=== PATIENT | female | born 1945 | race Caucasian/White ===

== ENCOUNTER 2020-04-21 14:54 | Inpatient (IN) ==
[2020-04-21] MEDS ORDERED: ACETAMINOPHEN 325 MG TABLET PO PRN (16:32)
[2020-04-21] MEDS ORDERED: MORPHINE 4 MG/1 ML VIAL IV PRN (16:32)
[2020-04-21] MEDS ORDERED: ALBUTEROL 2.5 MG/3 ML NEB RESP TX PRN (16:32)
[2020-04-21] MEDS ORDERED: ONDANSETRON 4 MG/2 ML VIAL IV PRN (16:32)
[2020-04-21] MEDS ORDERED: DOBUTamine 0 MG/0 ML PREMIX IV ONE (16:34)
[2020-04-21] MEDS ORDERED: DOPamine 0 MG/0 ML PREMIX IV ONE (16:34)
[2020-04-21] MEDS ORDERED: PHENYLEPHRINE DRIP 40 MG/250 ML PREMIX IV PRN (16:36)
[2020-04-21] MEDS ORDERED: VASOPRESSIN 100 UNITS in SODIUM CHLORIDE 0.9% 95 ML IV PRN (16:41)
[2020-04-21] MEDS ORDERED: NOREPINEPHRINE 4 MG/4 ML VIAL IV ONE (16:44)
[2020-04-21] MEDS ORDERED: HEPARIN/NACL 0.9% 2 UNITS/ML 500 ML IV ONE (16:50)
[2020-04-21] MEDS ORDERED: NOREPINEPHRINE 8 MG in SODIUM CHLORIDE 0.9% 242 ML IV SCH (17:00)
[2020-04-21] MEDS ORDERED: PANTOPRAZOLE 40 MG VIAL IV SCH (17:00)
[2020-04-21] MEDS ORDERED: SODIUM CHLORIDE 0.9% 1,000 ML IV ONE (17:40)
[2020-04-21] MEDS ORDERED: SODIUM BICARBONATE 50 MEQ/50 ML VIAL IV ONE ×3 (17:44→18:03)
[2020-04-21 17:52] LABS: Basophils # 0.1 10*3/uL (0.0-0.2); Basophils % 0.6 % (0.0-0.8); Eosinophils # 0.1 10*3/uL (0.0-0.87); Eosinophils % 0.7 % (0.00-10.9); Hematocrit 27.7 VOL% (35.7-47.0); Hemoglobin 7.9 GM/DL (12.0-16.0); Immature Granulocytes % 7.1 %; Immature Granulocytes Absolute 1.29 #; Lymphocytes # 3.5 10*3/uL (1.4-4.0); Lymphocytes % 19.4 % (21.3-54.2); Mean Corpuscular HGB Conc 28.5 GM/DL (32-36); Mean Corpuscular Volume 108.2 FL (87-102); Mean Platelet Volume 9.1 FL (9.6-12.0); NRBC # 0.09 10*3/uL; Neutrophils % 64.2 % (38.7-73.9); Platelet Count 118 T/CUMM (130-400); Red Blood Count 2.56 MC/CUMM (3.8-5.5); Red Cell Distribution Width 13.2 % (9.3-17.3); White Blood Count 18.2 T/CUMM (4-12)
[2020-04-21] MEDS ORDERED: CALCIUM GLUCONATE 2,000 MG in SODIUM CHLORIDE 0.9% 100 ML IV ONE (18:00)
[2020-04-21 18:05] LABS: ABG Base Excess -22.9 MMOL/L (-2.5-2.5); ABG HCO3 7.4 MMOL/L (20-26); ABG Oxygen Saturation 99.6 % (95-100); ABG PCO2 24.3 MM HG (35-48); ABG TCO2 6.4 MMOL/L (23-27)
[2020-04-21 18:07] LABS: ABG PH 7.024 (7.35-7.45)
[2020-04-21] MEDS ORDERED: DEXTROSE 50% 25 GM/50 ML VIAL IV ONE ×2 (18:09→18:11)
[2020-04-21] MEDS ORDERED: SODIUM BICARB INJ 150 MEQ in DEXTROSE 5% 850 ML IV SCH (18:10)
[2020-04-21] MEDS ORDERED: EPINEPHrine 1 MG/ML VIAL ONE (18:22)
[2020-04-21] MEDS ORDERED: EPINEPHrine 1 MG/10 ML SYRINGE IV ONE (18:23)
[2020-04-21] MEDS ORDERED: CALCIUM CHLORIDE 1,000 MG/10 ML SYRINGE IV ONE (18:26)
[2020-04-21 18:43] LABS: Albumin 2.8 G/DL (3.4-5.0); Bilirubin,Total 0.4 MG/DL (0.2-1.0); Calcium 8.7 MG/DL (8.5-10.1); Osmolality,Calculated 290.8 MOS/KG (273-304); Total Protein 6.5 G/DL (6.4-8.3)
[2020-04-21 18:45] LABS: Barbiturates Screen,Urine Negative (Negative); Benzodiazepines Screen,Urine Negative (Negative); Cannabinoid Screen,Urine Negative (Negative); Opiate Screen,Urine Negative (Negative); Phencyclidine Screen,Urine Negative (Negative)
[2020-04-21] MEDS ORDERED: ALBUTEROL/IPRATROPIUM 3 ML NEB RESP TX SCH (19:00)
[2020-04-21 19:08] LABS: Acanthocytes 1+; Anisocytosis 2+; Eosinophils 1 % (0-10); Hypochromasia 1+; Lymphocytes 20 % (20-55); Metamyelocytes 3 %; Microcytosis 2+; Platelet Estimate Decreased; Segmented Neutrophils 74 % (50-85); Total Cells Counted 100
[2020-04-21 19:29] LABS: Apearance,Urine CLEAR (Clear); Bacteria,Urine Occasional /HPF (Few); Bilirubin,Urine Negative (Negative); Blood, Urine Large mg/dL (Negative); Glucose,Urine (UA) Negative (Negative); Ketones,Urine Negative (Negative); Mucus,Urine Occasional /LPF (Occasional); Nitrite,Urine Negative (Negative); Protein,Urine Negative; RBC,Urine 7 /HPF (0-4); Squamous Epithelial Cell,Urine Occasional /HPF (0-10); Urine Color Yellow (Yellow); Urine Specific Gravity 1.011 (1.001-1.035); Urine Urobilinogen < 2.0 EU/DL (0.2-1.0)
[2020-04-21] MEDS ORDERED: SODIUM BICARBONATE 50 MEQ/50 ML SYRINGE IV ONE (19:37)
[2020-04-21] MEDS ORDERED: EPINEPHrine 1 MG/10 ML SYRINGE ONE (19:37)
[2020-04-21] MEDS ORDERED: ENOXAPARIN 40 MG/0.4 ML SYRINGE SUBCUT SCH (21:00)
== END 2020-04-21 18:38 | disposition expired | DRG 64 ==
LOC: SUATTDRO 16:27 → N.ICU 16:27
PROVIDERS: ADMIT Internal Medicine; ATTEND Internal Medicine